=== PATIENT | female | born 1990 | race Caucasian/White ===

== ENCOUNTER 2020-08-22 07:42 | Inpatient (IN) ==
[2020-08-22] MEDS ORDERED: OXYTOCIN 30 UNITS/500 ML BAG IV PRN ×2 (08:32)
[2020-08-22 09:06] LABS: Hematocrit (blood only) 36.9 % (37-47); Hemoglobin 12.7 g/dL (12.0-16.0); Mean Corpuscular Hemoglobin 31.3 pg (25-34); Mean Corpuscular Hgb Conc 34.4 g/dL (32-36); Mean Corpuscular Volume 90.9 fL (80-100); Mean Platelet Volume 11.2 fL (7.4-10.4); Platelet Count 208 K/uL (130-400); RDW Coefficient of Variation 13.6 % (11.5-14.5); RDW Standard Deviation 44.8 fL (36.4-46.3); Red Blood Count 4.06 M/uL (4.2-5.4); White Blood Count 9.82 K/uL (4.8-10.8)
[2020-08-22] MEDS: LACTATED RINGER'S 1,000 ML IV PRN ×3 (10:31→19:21)
--- NOTE | 2020-08-22 11:25 | History & Physical Report ---
Date of Service August 22, 2020 Assessment & Plan Admission and Anticipated Discharge Date Admission Date: August 22, 2020 IUP at 40+ weeks who presents for continuation of IOL pitocin augmentation begun epidural when requested by patient anticipate vaginal . History of Present Illness Primary Care Provider: NO PCP Patient is a 30 yo white female whp presents at 40 5/7 weeks for IOL because of post- term . She had a cervical balloon placed last night and it had not been expelled upon arrival in L&D this am. She did have cramping overnight with bloody show. GBS- negative. Prgnancy complicated by presence of a 14 cm complex cyst of the left ovary noted at initial OB visit. It appears to be an endometrioma and has remained stable in size through out the . She had underwent a prior RSO for an endometrioma. 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 It has remained asymptomatic during the as well. 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 Beliefs That Will Affect Care: None marital status: marital status details: Riley Hinkle (30) [phone] Current Living Situation: Spouse Current Living Situation Comment: lives with spouse, no pets current occupational status: unemployed Other Information That Helps Us Care for You: No Feels Safe at Home: Yes Safety Concerns: Feels Safe At This Time Assistive Devices: None Review of Systems All systems reviewed & are unremarkable except as noted in HPI & below Physical Exam Constitutional: WD/WN, vitals as above Respiratory: normal respiratory effort, lungs clear to auscultation Cardiovascular: RRR, no murmur, no edema Gastrointestinal (Abdomen): normal bowel sounds, soft, nontender, no hepatosplenomegaly Psychiatric: A+Ox3, euthymic affect Genitourinary: OB Exam Abdomen: + vertex, + estimated weight (7-8 pounds) and + irregular contractions Manual OB Exam: + cervical dilation 4 cm, + cervical effacement (soft) 70% and + station (-3) high OB Exam Monitor Tracing: + external FHT monitor used, + external uterine monitor used, + category I and + normal FHT variability cervical balloon was intact but moving through the cervix. the water was removed from the balloon and catheter removed without difficulty. cervix exam as noted above Results & Data ([facility]) Vital Signs (Past 12 Hours) Vital Signs Temp Pulse Resp BP 08/22/20 10:31 67 107/70 08/22/20 07:54 98.1 F 20 08/22/20 07:51 112 H 98/64 L Coding Level of Care Code None
[2020-08-22] MEDS ORDERED: ePHEDrine sulfate 50 MG/ML AMP ONE (16:07)
[2020-08-22] MEDS ORDERED: SODIUM CHLORIDE 0.9% INJ 10 ML VIAL ONE ×2 (16:08→20:30)
[2020-08-22] MEDS ORDERED: BUPIVACAINE 0.25% 30 ML VIAL ONE ×2 (16:08→20:30)
[2020-08-22] MEDS ORDERED: fentaNYL citrate 100 MCG/2 ML VIAL ONE ×2 (16:09→20:29)
[2020-08-22] MEDS ORDERED: fentaNYL 2MCG/ML ROPIVACAINE 1.25MG/ML 100 ML BAG EPI ONE (16:10)
--- NOTE | 2020-08-22 16:21 | Anesthesiology Consultation ---
Date of Service August 22, 2020 Assessment & Plan Chart Review Chart Review: Acceptable Risk for Surgery and Patient NOT seen in Pre Admission Testing Consults Requested none ASA ASA2 Proposed Anesthesia Anesthesia Type: Labor Epidural and CSE History Height/Weight Height: 5 ft 6 in Weight: 83.915 kg Allergies Allergy/AdvReac Type Severity Reaction Status Date / Time No Known Allergies Allergy Verified 08/22/20 08:06 Medications Home Medications Medication Instructions Recorded Confirmed Last Taken prenat.vits,anna,yyj-[id number] 1 tab PO DAILY 12/22/19 08/22/20 08/21/20 22:30 Active Medications Generic Name Dose Route Start Last Admin Trade Name Freq PRN Reason Stop Dose Admin Oxytocin 30 units in 500 mls @ 13 mls/hr 08/22/20 08:32 08/22/20 13:47 Pitocin IV 08/24/20 08:31 0.78 units/hr .Q24H PRN 13 mls/hr Labor Induction/Augmentation Titration Protocol 0.78 UNITS/HR Lactated Ringer's 1,000 mls @ 125 mls/hr 08/22/20 08:32 08/22/20 10:31 Lr IV 08/24/20 08:31 125 mls/hr .Q8H PRN Administration L&D Protocol Protocol Past Medical History Medical History Hx of varicella Exercise / Class Metabolic Activity II 4-5 Yardwork/Stairs/Walk up hill Past Family History Family History Father Hypertension Past Surgical History Surgical History History of oophorectomy right from cyst Done in [place], [place] Past Anesthesia History No Hx of Anesthesia Complications and No Family Hx of Anesthesia Complications History of PONV No Hx of PONV and No Hx of Motion Sickness Social History Smoking Status: Never smoker Hx Alcohol Use: No Hx Substance Use: No substance use type: does not use Physical Exam Vital Signs Last Vital Signs Temp 36.9 C 08/22/20 11:31 Pulse 62 08/22/20 16:16 Resp 20 08/22/20 11:31 BP 130/71 08/22/20 16:16 Testing Laboratory Results 08/22/20 08:48
[2020-08-22] MEDS ORDERED: NALOXONE HCL 1 MG in SODIUM CHLORIDE 0.9% 1000ML 1,000 ML IV PRN (16:56)
[2020-08-22] MEDS ORDERED: NALOXONE HCL 0.4 MG/1 ML VIAL/CARP IV PRN (16:56)
[2020-08-22] MEDS ORDERED: ONDANSETRON INJ 2 MG/ML 2 ML VIAL IV PRN (16:56)
[2020-08-22] MEDS ORDERED: ePHEDrine sulfate 50 MG/ML AMP IV PRN (16:56)
[2020-08-22] MEDS ORDERED: diphenhydrAMINE 50 MG/ML VIAL IV PRN (16:56)
[2020-08-22] MEDS ORDERED: PROMETHAZINE HCL 25 MG in SODIUM CHLORIDE 0.9% 50 ML IV PRN (16:56)
--- NOTE | 2020-08-22 20:40 | Communication Note ---
Date of Service: August 22, 2020 At 2034 Pt. epidural catheter was bolused w/ 12 ml 0.17% bupivacaine + 100 mcgs Fentanyl.Negative aspiration w/ incremental injection.Vital signs are stable. Pt c/o pain 7-8/10.
[2020-08-22] MEDS: fentaNYL 2MCG/ML ROPIVACAINE 1.25MG/ML 100 ML BAG EPI PRN (22:47)
[2020-08-23] MEDS ORDERED: fentaNYL citrate 100 MCG/2 ML VIAL ONE ×2 (00:24→00:58)
[2020-08-23] MEDS ORDERED: BUPIVACAINE 0.25% 30 ML VIAL ONE ×2 (00:25→00:57)
[2020-08-23] MEDS ORDERED: SODIUM CHLORIDE 0.9% INJ 10 ML VIAL ONE ×2 (00:25→00:57)
--- NOTE | 2020-08-23 00:34 | Communication Note ---
Date of Service: August 23, 2020 At 0031 ,Pt. epidural was bolused w/ 12 ml 0.17% bupivacaine + 100 mcgs fentanyl.Negative aspiration w/ incremental injections. Vital signs stable. Pt pain 9/10.
[2020-08-23] MEDS ORDERED: ePHEDrine sulfate 50 MG/ML AMP ONE (00:57)
[2020-08-23] MEDS ORDERED: fentaNYL 2MCG/ML ROPIVACAINE 1.25MG/ML 100 ML BAG EPI ONE (00:58)
[2020-08-23] MEDS: fentaNYL 2MCG/ML ROPIVACAINE 1.25MG/ML 100 ML BAG EPI PRN ×2 (01:06→06:39)
[2020-08-23] MEDS: LACTATED RINGER'S 1,000 ML IV PRN ×2 (01:23→05:23)
--- NOTE | 2020-08-23 01:26 | Anesthesia Procedure Note ---
Date of Service August 23, 2020 Anesthesia Post Epidural Note Vital Signs Vital Signs: Temp Pulse Resp BP Pulse Ox 37.4 C 81 18 121/64 98 08/23/20 00:47 08/23/20 01:22 08/23/20 00:47 08/23/20 01:22 08/23/20 01:21 Pain Intensity Lower Abdomen: Pain Intensity: 0 Notes Mental Status: alert / awake / arousable Nausea / Vomiting: adequately controlled Pain: adequately controlled Airway Patency, RR, SpO2: stable & adequate BP & HR: stable & adequate Hydration State: stable & adequate Neuraxial Anesthesia: was administered and sensory block is resolving Anesthetic Complications: no major complications apparent Epidural: Removed without complications and With tip intact Notes: at 0105 epidural catheter removed
--- NOTE | 2020-08-23 01:31 | Communication Note ---
Date of Service: August 23, 2020 Pt epidural removed w/ tip intact;replaced w/ new epidural catheter w/o incident as initial epidural not functioning.
[2020-08-23] MEDS ORDERED: DIPHTHERIA/TETANUS/PERTUSSIS 0.5 ML SYR/VIAL IM ONE (07:28)
[2020-08-23] MEDS ORDERED: oxyCODONE/ACETAMINOPHEN 5mg/325mg TAB PO PRN (07:28)
[2020-08-23] MEDS ORDERED: bisacodyL 10 MG SUPP PR PRN (07:28)
[2020-08-23] MEDS ORDERED: HYDROCORTISONE ACETATE 25 MG SUPP PR PRN (07:28)
[2020-08-23] MEDS ORDERED: OXYTOCIN 30 UNITS/500 ML BAG IV PRN (07:28)
[2020-08-23] MEDS ORDERED: SUPERCREAM 0.870% 15 GM JAR EXT PRN (07:28)
[2020-08-23] MEDS ORDERED: ACETAMINOPHEN 325 MG TAB PO PRN (07:28)
[2020-08-23] MEDS ORDERED: BENZOCAINE 20% AER SPR 82.5 GM CAN EXT PRN (07:28)
--- NOTE | 2020-08-23 07:48 | Anesthesia Procedure Note ---
Date of Service August 23, 2020 Anesthesia Post Epidural Note Vital Signs Vital Signs: Temp Pulse Resp BP Pulse Ox 36.8 C 81 18 129/69 98 08/23/20 04:03 08/23/20 07:45 08/23/20 05:11 08/23/20 07:45 08/23/20 07:11 Pain Intensity Lower Abdomen: Pain Intensity: 0 Notes Mental Status: alert / awake / arousable and participated in evaluation Patient Amnestic to Procedure: Yes Nausea / Vomiting: adequately controlled Pain: adequately controlled Airway Patency, RR, SpO2: stable & adequate BP & HR: stable & adequate Hydration State: stable & adequate Neuraxial Anesthesia: was administered and sensory block is resolving Anesthetic Complications: no major complications apparent and Pt Satisfied with anesthetic care Epidural: Removed without complications and With tip intact
--- NOTE | 2020-08-23 08:15 | Delivery Summary ---
Vaginal Delivery Summary Date of Service August 23, 2020 patient is a 30-year-old 1 P0 white female who presented for postterm induction of labor. She received cervical balloon on the evening of 08/21/2020. She represented for continuation of the induction on the morning of 08/22/2020. The cervical balloon was removed at that time and Pitocin augmentation of her labor was begun. During the course of her labor she had intermittent runs of variable decelerations but finally progressed to full dilation and pushed effectively over intact perineum for delivery of a viable male infant. After delivery of the head there was a very loose nuchal cord which reduced spontaneously. The rest of the delivered easily and was p laced on the mother's abdomen for further attention and drying. There was poor respiratory effort initially and the was taken to the baby bed for further resuscitative measures. at 1 minute, the infant was spontaneously crying and moving all 4 limbs. The placenta was expressed intact with a three-vessel cord. A second-degree perineal laceration was repaired with 3-0 chromic in the usual fashion. Estimated blood loss was 250 cc. bleeding was controlled with dilute Pitocin. Vaginal Delivery Summary and 2nd Degree LAC [facility] Vaginal Delivery Charge Vaginal Delivery Codes: 98370 global code for the antepartum, delivery, and post- Delivery Type Details: and 2nd Degree LAC
[2020-08-23] MEDS: IBUPROFEN 600 MG TAB PO PRN ×4 (08:34→23:31)
[2020-08-23] MEDS: PRENATAL VITAMIN 1 TAB PO SCH (08:38)
[2020-08-23] MEDS: DOCUSATE SODIUM 100 MG CAP PO SCH ×2 (08:38→21:48)
[2020-08-24] MEDS: IBUPROFEN 600 MG TAB PO PRN ×3 (03:07→12:30)
--- NOTE | 2020-08-24 05:19 | Obstetrical Progress Note ---
Date of Service <Zurdo Thompson MD - Last Filed: 08/24/20 06:04> August 24, 2020 Assessment & Plan <Zurdo Thompson MD - Last Filed: 08/24/20 06:04> (1) : - PNL: Rh pos, RI, GBS neg, COVID neg - Feels well today. Eating well, voiding well, ambulating well - Pain well controlled with ibuprofen 600mg Q4H PRN - Routine care -- OOB, ambulation, diet progression as tolerated - After discharge will have 6 week follow-up with Dr. Perez Subjective <Zurdo Thompson MD - Last Filed: 08/24/20 06:04> Stephanie is a 30 y/o female who is PPD #1 following at 40+ weeks. She reports feeling well overall this morning. Light abdominal cramping and 4/10 pain well managed on analgesics. Voiding well. Tolerating meals overnight without difficulty. Patient has been able to ambulate some. Is passing gas, has not yet had a bowel movement. Has persistent lochia with some improvement this morning. Currently . Review of Systems Denies fever or chills. Denies shortness of breath or cough. Denies chest pain. Denies breast pain. Denies dysuria. Denies leg pain or leg swelling. Denies headache or changes in vision. Physical Exam <Zurdo Thompson MD - Last Filed: 08/24/20 06:04> General: Alert, oriented. No acute distress. Cardiac: Regular rate and rhythm. No murmurs. Respiratory: Clear to auscultation bilaterally a/p, no wheezes/rales/rhonchi. No increased work of breathing. Symmetrical chest rise. No respiratory distress. Abdomen: Soft, nontender, nondistended. Bowel sounds present. Uterus: Uterine fundus firm, palpable ~1 cm below umbilicus. Lower Extremities: No lower extremity edema or swelling. No deep calf pain. Flynn's negative bilaterally. Results & Data ([facility]) <Zurdo Thompson MD - Last Filed: 08/24/20 06:04> Vital Signs (Past 12 Hours) Vital Signs Temp Pulse Resp BP Pulse Ox 08/23/20 23:35 36.8 C 57 L 18 123/76 98 08/23/20 19:45 36.6 C 79 20 113/78 <Diamante West MD - Last Filed: 08/24/20 07:16> Co-Signing Physician Notes Resident Physician Supervision Note: I interviewed and examined the patient. Discussed with Dr. Rodriguez and agree with findings and plan as documented in the note. Any exceptions or clarifications are listed here: PP1 s/p . Doing well, meeting milestones. VSS, exam wnl. Desires to go home, stable for d/c today. Recommended she [place] soft top [place] [facility] [place] she is delivered so she can be scheduled for endometrioma f/u, she says she will Documented By: Diamante West MD Resident Activity Tracking <Zurdo Thompson MD - Last Filed: 08/24/20 06:04> Resident Involvement: Resident Care Provided Care Provided: OB Delivery
[2020-08-24 06:20] LABS: Hematocrit (blood only) 31.7 % (37-47); Hemoglobin 10.8 g/dL (12.0-16.0); Mean Corpuscular Hemoglobin 30.8 pg (25-34); Mean Corpuscular Hgb Conc 34.1 g/dL (32-36); Mean Corpuscular Volume 90.3 fL (80-100); Mean Platelet Volume 11.4 fL (7.4-10.4); Platelet Count 176 K/uL (130-400); RDW Coefficient of Variation 13.9 % (11.5-14.5); RDW Standard Deviation 45.7 fL (36.4-46.3); Red Blood Count 3.51 M/uL (4.2-5.4); White Blood Count 10.65 K/uL (4.8-10.8)
[2020-08-24] MEDS: DOCUSATE SODIUM 100 MG CAP PO SCH (09:06)
[2020-08-24] MEDS: PRENATAL VITAMIN 1 TAB PO SCH (09:06)
[2020-08-24] MEDS ORDERED: bisacodyL 5 MG TABEC PO SCH (20:00)
== END 2020-08-24 13:54 | disposition home or self-care (01) | DRG 807 ==
LOC: 4S1 07:42 → 4S2 08-23 09:15

== ENCOUNTER 2022-12-05 06:12 | Inpatient (IN) ==
[2022-12-05] MEDS ORDERED: LIDOCAINE 1% LOCAL 20 ML VIAL INFIL PRN (08:57)
[2022-12-05] MEDS ORDERED: OXYTOCIN 30 UNITS/500 ML BAG IV PRN ×2 (08:57→22:17)
[2022-12-05] MEDS ORDERED: PENICILLIN G POTASSIUM 6 MU in DEXTROSE 5% 250 ML IV STA (09:03)
[2022-12-05 09:22] LABS: Hemoglobin 12.9 g/dl (12.0-16.0); Mean Corpuscular Hemoglobin 31.2 pg (25.0-34.0); Mean Corpuscular Hgb Conc 34.9 g/dL (32.0-36.0); Mean Corpuscular Volume 89.6 fL (80.0-100.0); Mean Platelet Volume 10.9 fL (9.4-12.4); Platelet Count 246 K/uL (130-400); RDW Coefficient of Variation 13.2 % (11.5-14.5); RDW Standard Deviation 43.5 fL (36.4-46.3); Red Blood Count 4.13 M/uL (4.20-5.40); White Blood Count 12.19 K/ul (4.8-10.8)
[2022-12-05] MEDS: LACTATED RINGER'S 1,000 ML IV PRN ×2 (09:31→10:52)
[2022-12-05] MEDS ORDERED: LIDOCAINE 2%/EPINEPHRINE 1:200,000 20 ML PF ONE (10:16)
[2022-12-05] MEDS ORDERED: BUPIVACAINE 0.25% PF 30 ML VIAL ONE (10:16)
[2022-12-05] MEDS ORDERED: fentaNYL citrate PF 100 MCG/2 ML VIAL ONE (10:16)
[2022-12-05] MEDS ORDERED: ePHEDrine sulfate 50 MG/ML AMP ONE (10:16)
[2022-12-05] MEDS ORDERED: SODIUM CHLORIDE 0.9% PF INJ 10 ML VIAL ONE (10:16)
[2022-12-05] MEDS ORDERED: fentaNYL 2MCG/ML ROPIVACAINE 1.25MG/ML 100 ML BAG EPI ONE (10:17)
[2022-12-05] MEDS ORDERED: ROPIVACAINE 0.5% PF 5 MG/ML 20 ML VIAL EPI PRN (10:27)
[2022-12-05] MEDS ORDERED: BUPIVACAINE 0.25% PF 30 ML VIAL EPI PRN (10:27)
[2022-12-05] MEDS ORDERED: SODIUM CHLORIDE 0.9% PF INJ 10 ML VIAL EPI PRN (10:27)
[2022-12-05] MEDS ORDERED: BUPIVACAINE 0.25% PF 30 ML VIAL EPI STA (10:27)
[2022-12-05] MEDS ORDERED: SODIUM CHLORIDE 0.9% PF INJ 10 ML VIAL EPI STA (10:27)
[2022-12-05] MEDS ORDERED: fentaNYL citrate PF 100 MCG/2 ML VIAL EPI PRN (10:27)
[2022-12-05] MEDS ORDERED: NALOXONE HCL 0.4 MG/1 ML VIAL/CARP IV PRN (10:27)
[2022-12-05] MEDS ORDERED: LIDOCAINE 2% MPF LOCAL 5 ML VIAL EPI PRN (10:27)
[2022-12-05] MEDS ORDERED: NALOXONE HCL 1 MG in SODIUM CHLORIDE 0.9% 1000ML 1,000 ML IV PRN (10:27)
[2022-12-05] MEDS ORDERED: diphenhydrAMINE 50 MG/ML VIAL IV PRN (10:27)
[2022-12-05] MEDS ORDERED: ePHEDrine sulfate 50 MG/ML AMP IV PRN (10:27)
[2022-12-05] MEDS ORDERED: fentaNYL citrate PF 100 MCG/2 ML VIAL EPI STA (10:27)
[2022-12-05] MEDS ORDERED: LIDOCAINE 2%/EPINEPHRINE 1:200,000 20 ML PF EPI STA (10:27)
[2022-12-05] MEDS ORDERED: NALBUPHINE HCL INJ 10 MG/ML AMP IV PRN (10:27)
--- NOTE | 2022-12-05 10:28 | Anesthesiology Consultation ---
Date of Service December 05, 2022 Assessment & Plan (1) Encounter for pre-operative examination: Chart Review Chart Review: Patient NOT seen in Pre Admission Testing and Acceptable Risk for Labor Epidural Consults Requested none History Height/Weight Height: 5 ft 6 in Weight: 85.729 kg Allergies Allergy/AdvReac Type Severity Reaction Status Date / Time No Known Allergies Allergy Verified 12/04/22 09:19 Medications Home Medications Medication Instructions Recorded Confirmed Last Taken prenat.vits,anna,jta-qlgt-hkhsm 1 tab PO DAILY 12/22/19 12/05/22 08/21/20 22:30 Active Medications Generic Name Dose Route Start Last Admin Trade Name Freq PRN Reason Stop Dose Admin Lactated Ringer's 1,000 mls @ 125 mls/hr 12/05/22 08:57 12/05/22 09:31 Lr IV 12/07/22 08:56 999 mls/hr .Q8H PRN Administration L&D Protocol Protocol Past Medical History Medical History (Updated 12/05/22 @ 10:28 by Nicanor Bucio MD) Encounter for anatomic survey Encounter for pre-operative examination Hx of varicella Supervision of normal intrauterine in primigravida Exercise / Class Metabolic Activity II 4-5 Yardwork/Stairs/Walk up hill Past Family History Family History Father Hypertension Denies family history of Ovarian cancer Breast cancer Colorectal cancer Past Surgical History Surgical History History of oophorectomy right from cyst Done in [place], [place] Past Anesthesia History No Hx of Anesthesia Complications and No Family Hx of Anesthesia Complications Social History Smoking Status: Never smoker Do You Dip or Chew Tobacco: No Hx Alcohol Use: No Hx Substance Use: No substance use type: does not use Physical Exam Vital Signs Last Vital Signs Temp 36.6 C 12/05/22 06:28 Pulse 75 12/05/22 10:47 Resp 18 12/05/22 10:30 BP 120/77 12/05/22 10:47 Pulse Ox 99 12/05/22 10:44 Testing Laboratory Results 12/05/22 09:09
[2022-12-05] MEDS: fentaNYL 2MCG/ML ROPIVACAINE 1.25MG/ML 100 ML BAG EPI PRN ×2 (10:50→16:45)
[2022-12-05] MEDS: PENICILLIN G POTASSIUM 3 MU in DEXTROSE 5% 100 ML IV PRN ×2 (13:24→17:28)
--- NOTE | 2022-12-05 14:00 | Labor Progress Brief Note ---
Date of Service December 05, 2022 Subjective Comfortable with epidural. FHT Cat 1 [place] Q 2-4 SVE 4-5/90/-2, bulging membranes. Getting 2nd dose PCN now. Continue labor. Assessment & Plan Admission and Anticipated Discharge Date Admission Date: December 05, 2022 Results & Data Vital Signs (Past 12 Hours) Vital Signs Temp Pulse Resp BP Pulse Ox 12/05/22 13:54 76 98 12/05/22 13:52 69 118/76 12/05/22 13:49 71 96 12/05/22 13:44 75 98 12/05/22 13:39 79 99 12/05/22 13:37 64 101/56 L 12/05/22 13:34 59 L 97 12/05/22 13:29 53 L 97 12/05/22 13:24 58 L 98 12/05/22 13:23 60 95/54 L 12/05/22 13:19 59 L 96 12/05/22 13:14 62 97 12/05/22 13:09 61 97 12/05/22 13:08 57 L 95/52 L 12/05/22 13:04 64 96 12/05/22 12:59 57 L 96 12/05/22 12:54 57 L 96 12/05/22 12:52 67 99/54 L 12/05/22 12:49 68 97 12/05/22 12:44 68 96 12/05/22 12:39 62 97 12/05/22 12:34 60 96 12/05/22 12:29 55 L 97 12/05/22 12:24 64 97 12/05/22 12:22 68 95/51 L 12/05/22 12:19 67 96 12/05/22 12:14 74 97 12/05/22 12:09 68 96 12/05/22 12:08 64 97/57 L 12/05/22 12:04 67 95 12/05/22 12:00 20 12/05/22 12:00 20 12/05/22 11:30 20 12/05/22 11:30 20 12/05/22 11:59 85 97 12/05/22 11:54 67 96 12/05/22 11:52 80 91/53 L 12/05/22 11:49 65 96 12/05/22 11:44 63 96 12/05/22 11:39 64 97 12/05/22 11:37 66 95/54 L 12/05/22 11:34 66 97 12/05/22 11:29 66 98 12/05/22 11:24 68 96 12/05/22 11:20 36.7 C 12/05/22 11:19 79 97 12/05/22 11:18 81 125/76 12/05/22 11:00 20 12/05/22 11:00 20 12/05/22 11:14 76 96 12/05/22 11:13 77 114/72 12/05/22 11:00 18 12/05/22 11:00 18 12/05/22 11:09 80 94 12/05/22 11:08 85 118/77 12/05/22 11:04 79 95 12/05/22 11:05 81 18 116/75 12/05/22 10:59 87 96 12/05/22 10:58 76 111/68 12/05/22 10:57 76 116/72 12/05/22 10:54 77 95 12/05/22 10:55 75 20 112/71 12/05/22 10:53 78 112/71 12/05/22 10:51 80 114/74 12/05/22 10:49 84 113/73 95 12/05/22 10:47 75 120/77 12/05/22 10:44 99 12/05/22 10:44 78 12/05/22 10:45 73 122/77 12/05/22 10:44 86 122/80 12/05/22 10:39 77 99 12/05/22 10:37 81 146/75 H 12/05/22 10:34 82 97 12/05/22 10:30 18 12/05/22 10:30 18 12/05/22 09:00 18 12/05/22 09:00 18 12/05/22 10:29 75 98 12/05/22 10:00 20 12/05/22 10:00 20 12/05/22 10:24 88 100 12/05/22 10:23 74 124/78 12/05/22 09:31 78 119/72 12/05/22 06:28 36.6 C 74 18 129/78 Coding Level of Care Code None Diagnoses
--- NOTE | 2022-12-05 21:15 | Delivery Summary ---
Vaginal Delivery Summary Date of Service December 05, 2022 Vaginal Delivery Summary and 2nd Degree LAC Vaginal Delivery Summary: Pre-delivery diagnoses: 32yo @ 39 06/08, spontaneous labor, h/o endometrioma Post-delivery diagnoses: same Procedure: spontaneous vaginal delivery Surgeon: Nicole Blake DO Complications: none Findings: Viable male . Apgars: 7/9 . Weight pending, please see nursery records Estimated blood loss: 300ml Description of delivery: The patient progressed to complete with epidural anesthesia. She then began to push. She spontaneously vaginally delivered a viable from the cephalic presentation. The head delivered in AMANDA position. The anterior shoulder delivered, followed by the posterior shoulder, followed by the body. The baby was placed on mother's abdomen and a spontaneous cry was heard. Delayed cord clamping was employed, and the cord was doubly clamped and cut. Cord blood was obtained. The placenta was delivered spontaneously intact with a 3-vessel cord. The uterus and vagina were swept of clots and debris. IV pitocin was given. The uterus became firm. The cervix, vagina, and perineum were inspected and a 2nd degree laceration was noted and repaired in standard fashion with 3-0 Vicryl. Excellent hemostasis was observed. The mother and baby are recovering in stable and good condition in the room. Sponge, needle and instrument counts were correct x 2. Nicole Blake DO [facility] Vaginal Delivery Charge Vaginal Delivery Codes: 77608 global code for the antepartum, delivery, and post- Delivery Type Details: and 2nd Degree LAC
--- NOTE | 2022-12-05 21:20 | Anesthesia Procedure Note ---
Date of Service December 05, 2022 Anesthesia Post Epidural Note Vital Signs Vital Signs: Temp Pulse Resp BP Pulse Ox 37.0 C 75 18 124/65 96 12/05/22 20:05 12/05/22 21:19 12/05/22 20:05 12/05/22 21:19 12/05/22 20:39 Pain Intensity Bilateral Lower Abdomen: Pain Intensity: 3 Notes Mental Status: alert / awake / arousable and participated in evaluation Nausea / Vomiting: adequately controlled Pain: adequately controlled Airway Patency, RR, SpO2: stable & adequate BP & HR: stable & adequate Hydration State: stable & adequate Neuraxial Anesthesia: was administered and sensory block is resolving Anesthetic Complications: no major complications apparent and Pt Satisfied with anesthetic care Epidural: Removed without complications and With tip intact
[2022-12-05] MEDS ORDERED: bisacodyL 10 MG SUPP PR PRN (22:17)
[2022-12-05] MEDS ORDERED: BENZOCAINE 20% AER SPR 82.5 GM CAN EXT PRN (22:17)
[2022-12-05] MEDS ORDERED: DIPHTHERIA/TETANUS/PERTUSSIS Vaccine (Tdap, Age 7+yrs) 0.5mL SYR/VL IM ONE (22:17)
[2022-12-05] MEDS ORDERED: oxyCODONE/ACETAMINOPHEN 5mg/325mg TAB PO PRN (22:17)
[2022-12-05] MEDS ORDERED: ACETAMINOPHEN 325 MG TAB PO PRN (22:17)
[2022-12-05] MEDS ORDERED: HYDROCORTISONE ACETATE 25 MG SUPP PR PRN (22:17)
[2022-12-06] MEDS: IBUPROFEN 600 MG TAB PO PRN ×4 (02:05→17:46)
[2022-12-06 06:55] LABS: Hematocrit (blood only) 33.8 % (37.0-47.0); Hemoglobin 11.5 g/dl (12.0-16.0)
[2022-12-06] MEDS ORDERED: PRENATAL VITAMIN 1 TAB PO SCH (08:00)
[2022-12-06] MEDS ORDERED: DOCUSATE SODIUM 100 MG CAP PO SCH (08:00)
--- NOTE | 2022-12-06 08:49 | Obstetrical Progress Note ---
Date of Service December 06, 2022 Assessment & Plan (1) Normal course: PPD#1 doing well. Desires DC home. Followup office 6w. Reviewed Dc instructions. Subjective Ambulation: ambulating normally Voiding: no voiding problems Diet Tolerance:: regular diet Lochia:: Moderate Review of Systems All systems reviewed & are unremarkable except as noted in HPI & below Physical Exam Constitutional WD/WN, vitals as above no acute distress Respiratory normal respiratory effort Cardiovascular Rate/Rhythm: regular rate and regular rhythm Gastrointestinal (Abdomen) Inspection/Auscultation: abdomen normal to inspection; abdomen not distended Percussion/Palpation: abdomen soft Genitourinary OB Exam Abdomen: + fundal height Fundus: + firm; not tender Results & Data Vital Signs (Past 12 Hours) Vital Signs Temp Pulse Pulse Resp BP BP Pulse Ox 12/06/22 07:50 36.5 C 70 16 125/82 97 12/06/22 07:50 36.5 C 70 16 125/82 97 12/06/22 03:35 36.7 C 63 18 115/69 98 12/05/22 23:08 36.3 C L 65 18 124/75 97 12/05/22 21:50 18 12/05/22 21:35 18 12/05/22 21:20 18 12/05/22 21:05 18 12/05/22 22:50 18 12/05/22 22:20 18 12/05/22 20:50 37.0 C 18 12/05/22 22:55 101 H 117/71 12/05/22 22:48 87 116/66 12/05/22 22:33 77 121/71 12/05/22 22:18 82 121/63 12/05/22 22:03 77 128/73 12/05/22 21:49 73 126/73 12/05/22 21:34 76 132/72 12/05/22 21:19 75 124/65 12/05/22 21:03 65 113/62 12/05/22 20:49 68 102/61 O2 Del Method 12/06/22 07:50 12/06/22 07:50 Room Air 12/06/22 03:35 Room Air 12/05/22 23:08 Room Air 12/05/22 21:50 12/05/22 21:35 12/05/22 21:20 12/05/22 21:05 12/05/22 22:50 12/05/22 22:20 12/05/22 20:50 12/05/22 22:55 12/05/22 22:48 12/05/22 22:33 12/05/22 22:18 12/05/22 22:03 12/05/22 21:49 12/05/22 21:34 12/05/22 21:19 12/05/22 21:03 12/05/22 20:49
[2022-12-06] MEDS ORDERED: bisacodyL 5 MG TABEC PO SCH (20:00)
== END 2022-12-06 21:40 | disposition home or self-care (01) | DRG 807 ==
LOC: OPB 06:12 → 4S1 06:19 → 4E2 12-06 00:32